=== PATIENT | female | born 1945 | race African-American/Black ===

== ENCOUNTER 2023-11-04 00:52 | Inpatient (IN) | payer OTHER ==
[2023-11-04] MEDS ORDERED: SODIUM CHLORIDE 0.9% 500 ML INFUS.BAG IV ONE (01:45)
[2023-11-04] MEDS ORDERED: ACETAMINOPHEN 1000 MG/100 ML BAG IVPB ONE (01:45)
[2023-11-04] MEDS ORDERED: DIPHTH,PERTUSS(ACELL),TET 0.5 ML DISP.SYRIN IM ONE ×2 (02:17→04:10)
[2023-11-04 02:19] LABS: HEMATOCRIT 43.1 % (32.4-45.2); HEMOGLOBIN 14.2 GM/dL (10.7-15.3); MCH 28.9 pg (25.7-33.7); MEAN CELL VOLUME 87.4 fl (80-96); MEAN PLT VOLUME 8.9 fl (7.5-11.1); PLATELET COUNT 421 10^3/uL (134-434); RBC 4.94 M/mm3 (3.60-5.2); RDW 15.1 % (11.6-15.6); WHITE BLOOD COUNT 9.4 K/mm3 (4.0-10.0)
[2023-11-04 02:27] LABS: INR 1.06 (0.83-1.09); PROTHROMBIN TIME (PATIENT) 12.3 SEC (9.7-13.0)
[2023-11-04 02:29] LABS: ACTIVATED PTT 23.2 SECONDS (25.2-36.5)
[2023-11-04 02:38] LABS: POTASSIUM 4.9 mmol/L (3.5-5.1)
[2023-11-04 02:40] LABS: CALCIUM 9.2 mg/dL (8.5-10.1)
[2023-11-04 02:41] LABS: ALBUMIN 3.4 g/dl (3.4-5.0); BLOOD UREA NITROGEN 10.1 mg/dL (7-18)
[2023-11-04 02:44] LABS: CREATININE 0.6 mg/dL (0.55-1.3); PHOSPHOROUS 2.6 mg/dL (2.5-4.9)
[2023-11-04 02:45] LABS: BILIRUBIN,TOTAL 0.7 mg/dL (0.2-1); TOT PROT 6.9 g/dl (6.4-8.2)
[2023-11-04 03:29] LABS: MAGNESIUM 1.6 mg/dL (1.8-2.4)
[2023-11-04] MEDS ORDERED: MAGNESIUM SULFATE IN WATER 2 GM/50 ML IVPB IVPB ONE ×2 (03:34→03:55)
[2023-11-04] MEDS ORDERED: ACETAMINOPHEN INJECTION 100 ML IVPB ONE (03:55)
[2023-11-04] MEDS ORDERED: FOLIC ACID INJECTION - 1 MG, THIAMINE HCL 100 MG, MULTIVIT INJECTION ADULT 10 ML in SOD... IVPB ONE ×2 (05:33→07:30)
[2023-11-04] MEDS ORDERED: BENZOCAINE/MENTHOL 1 EACH LOZENGE MM PRN (07:26)
[2023-11-04 08:17] LABS: BASO % 0.5 % (0-2.0); EOS % 0.8 % (0-4.5); HEMATOCRIT 40.1 % (32.4-45.2); HEMOGLOBIN 13.1 GM/dL (10.7-15.3); LYMPH % 13.7 % (8-40); MCH 28.7 pg (25.7-33.7); MCHC 32.6 g/dl (32.0-36.0); MEAN CELL VOLUME 88.2 fl (80-96); MEAN PLT VOLUME 9.2 fl (7.5-11.1); MONO % 15.4 % (3.8-10.2); NEUT % 69.6 % (42.8-82.8); PLATELET COUNT 367 10^3/uL (134-434); RBC 4.55 M/mm3 (3.60-5.2); RDW 14.8 % (11.6-15.6); WHITE BLOOD COUNT 7.7 K/mm3 (4.0-10.0)
[2023-11-04 08:32] LABS: POTASSIUM 3.3 mmol/L (3.5-5.1)
[2023-11-04 08:34] LABS: BLOOD UREA NITROGEN 10.9 mg/dL (7-18); CALCIUM 8.8 mg/dL (8.5-10.1)
[2023-11-04 08:37] LABS: BILIRUBIN,DIRECT 0.2 mg/dL (0.0-0.2); CREATININE 0.5 mg/dL (0.55-1.3)
[2023-11-04 08:39] LABS: TOT PROT 6.1 g/dl (6.4-8.2)
[2023-11-04 08:40] LABS: BILIRUBIN,TOTAL 0.4 mg/dL (0.2-1)
[2023-11-04] MEDS ORDERED: ENOXAPARIN NA (PORCINE) 40 MG/0.4 ML DISP.SYRIN SQ ONE (11:53)
[2023-11-04] MEDS: ENOXAPARIN NA (PORCINE) 40 MG/0.4 ML DISP.SYRIN SQ SCH (11:58)
[2023-11-04] MEDS ORDERED: POTASSIUM CHLORIDE ORAL LIQUID 20 MEQ/15 ML PO ONE (13:48)
[2023-11-04] MEDS ORDERED: POTASSIUM CHLORIDE ORAL LIQUID 20 MEQ/15 ML ONE (14:12)
[2023-11-04] MEDS ORDERED: ACETAMINOPHEN 325 MG TABLET (FP) ONE (20:36)
[2023-11-04] MEDS: ACETAMINOPHEN 500 MG TABLET (FP) PO PRN (20:43)
[2023-11-05 08:41] LABS: POTASSIUM 3.9 mmol/L (3.5-5.1)
[2023-11-05 08:46] LABS: CALCIUM 8.6 mg/dL (8.5-10.1)
[2023-11-05 08:47] LABS: BLOOD UREA NITROGEN 11.2 mg/dL (7-18)
[2023-11-05 08:49] LABS: CREATININE 0.4 mg/dL (0.55-1.3)
[2023-11-05] MEDS: ENOXAPARIN NA (PORCINE) 40 MG/0.4 ML DISP.SYRIN SQ SCH (09:24)
[2023-11-05] MEDS ORDERED: ACETAMINOPHEN 500 MG TABLET (FP) ONE (18:59)
[2023-11-05] MEDS: ACETAMINOPHEN 500 MG TABLET (FP) PO PRN (19:02)
[2023-11-05 23:25] LABS: EPI CELLS 1 /uL (0-25.1); HYALINE CASTS 0 /uL (0-3.1); URINE APPEARANCE CLEAR; URINE BACTERIA 214 /uL (0-1359); URINE BILIRUBIN NEGATIVE (NEGATIVE); URINE COLOR YELLOW; URINE GLUCOSE (UA) NEGATIVE (NEGATIVE); URINE KETONE NEGATIVE (NEGATIVE); URINE LEUK ESTERASE 2+ (NEGATIVE); URINE NITRITE NEGATIVE (NEGATIVE); URINE PROTEIN NEGATIVE (NEGATIVE); URINE RBC 24 /uL (0-23.9); URINE WBC 185 /uL (0-25.8)
[2023-11-06] MEDS ORDERED: ACETAMINOPHEN 500 MG TABLET (FP) ONE (00:53)
[2023-11-06] MEDS: ACETAMINOPHEN 500 MG TABLET (FP) PO PRN (00:58)
[2023-11-06 06:36] VITALS: RESP 18
[2023-11-06] MEDS: ENOXAPARIN NA (PORCINE) 40 MG/0.4 ML DISP.SYRIN SQ SCH (09:28)
[2023-11-06] MEDS ORDERED: amLODIPine BESYLATE 5 MG TABLET (FP) PO SCH (10:45)
[2023-11-06] MEDS ORDERED: SODIUM CHLORIDE 0.45% 1,000 ML IV SCH ×2 (11:15)
[2023-11-06 11:50] LABS: POTASSIUM 4.2 mmol/L (3.5-5.1)
[2023-11-06 11:52] LABS: ALBUMIN 2.8 g/dl (3.4-5.0); CALCIUM 9.6 mg/dL (8.5-10.1); MAGNESIUM 1.6 mg/dL (1.8-2.4)
[2023-11-06 11:53] LABS: BLOOD UREA NITROGEN 10.4 mg/dL (7-18)
[2023-11-06 11:55] LABS: BILIRUBIN,DIRECT 0.1 mg/dL (0.0-0.2)
[2023-11-06 11:56] LABS: CREATININE 0.5 mg/dL (0.55-1.3)
[2023-11-06 11:57] LABS: BILIRUBIN,TOTAL 0.2 mg/dL (0.2-1); TOT PROT 5.7 g/dl (6.4-8.2)
[2023-11-06] MEDS ORDERED: MAGNESIUM 2GM/50ML STERILE WATER IVPB IVPB ONE (12:00)
[2023-11-06 14:32] VITALS: BMI 18.0
[2023-11-07] MEDS ORDERED: BENZOCAINE/MENTHOL 1 EACH LOZENGE MM PRN (07:14)
[2023-11-07] MEDS: ASCORBIC ACID 250 MG TABLET (FP) PO SCH (09:33)
[2023-11-07] MEDS: MULTIVITAMINS (DAILY MVI) TABLET (FP) PO SCH (09:33)
[2023-11-07] MEDS: amLODIPine BESYLATE 5 MG TABLET (FP) PO SCH (09:33)
[2023-11-07] MEDS: ENOXAPARIN NA (PORCINE) 40 MG/0.4 ML DISP.SYRIN SQ SCH (09:33)
[2023-11-07 11:10] LABS: HEMATOCRIT 35.2 % (32.4-45.2); HEMOGLOBIN 11.6 GM/dL (10.7-15.3); MCH 28.8 pg (25.7-33.7); MEAN CELL VOLUME 87.3 fl (80-96); PLATELET COUNT 397 10^3/uL (134-434); RBC 4.03 M/mm3 (3.60-5.2); RDW 15.1 % (11.6-15.6); WHITE BLOOD COUNT 8.2 K/mm3 (4.0-10.0)
[2023-11-07 11:18] LABS: POTASSIUM 4.2 mmol/L (3.5-5.1)
[2023-11-07 11:22] LABS: CALCIUM 8.9 mg/dL (8.5-10.1)
[2023-11-07 11:23] LABS: ALBUMIN 2.6 g/dl (3.4-5.0); BLOOD UREA NITROGEN 8.2 mg/dL (7-18); MAGNESIUM 1.7 mg/dL (1.8-2.4)
[2023-11-07 11:26] LABS: CREATININE 0.6 mg/dL (0.55-1.3); PHOSPHOROUS 2.7 mg/dL (2.5-4.9)
[2023-11-07 11:27] LABS: BILIRUBIN,TOTAL 0.2 mg/dL (0.2-1); TOT PROT 5.5 g/dl (6.4-8.2)
[2023-11-07] MEDS: MAGNESIUM OXIDE 400 MG TABLET (FP) PO SCH ×2 (12:55→21:22)
[2023-11-07] MEDS: PARoxetine HCL 10 MG TABLET PO SCH (12:55)
[2023-11-07] MEDS ORDERED: CEFTRIAXONE 1 GM in DEXTROSE 5%-WATER - 50 ML IVPB ONE (15:03)
[2023-11-07] MEDS: ACETAMINOPHEN 325 MG TABLET (FP) PO PRN (21:26)
[2023-11-08] MEDS ORDERED: ACETAMINOPHEN 1000 MG/100 ML BAG IVPB ONE (03:13)
[2023-11-08] MEDS: MULTIVITAMINS (DAILY MVI) TABLET (FP) PO SCH (09:20)
[2023-11-08] MEDS: PARoxetine HCL 10 MG TABLET PO SCH (09:20)
[2023-11-08] MEDS: ENOXAPARIN NA (PORCINE) 40 MG/0.4 ML DISP.SYRIN SQ SCH (09:20)
[2023-11-08] MEDS: MAGNESIUM OXIDE 400 MG TABLET (FP) PO SCH (09:20)
[2023-11-08] MEDS: amLODIPine BESYLATE 5 MG TABLET (FP) PO SCH (09:20)
[2023-11-08] MEDS: ASCORBIC ACID 250 MG TABLET (FP) PO SCH (09:20)
[2023-11-08] MEDS: GABAPENTIN 100 MG CAPSULE PO SCH ×3 (09:55→22:41)
[2023-11-08] MEDS ORDERED: CEFTRIAXONE 1 GM in DEXTROSE 5%-WATER - 50 ML IVPB SCH (10:00)
[2023-11-08] MEDS ORDERED: COLLAGENASE CLOSTRIDIUM HIST. 30 GRAMS TUBE TP SCH ×2 (11:15)
[2023-11-08] MEDS ORDERED: MAGNESIUM OXIDE 400 MG TABLET (FP) PO SCH ×2 (11:15→22:00)
[2023-11-08] MEDS: ACETAMINOPHEN 325 MG TABLET (FP) PO PRN (12:42)
[2023-11-08 22:14] VITALS: BP 136/64; PULSE 84; TEMP 98.5
== END 2023-11-09 00:39 | DRG 690 ==
LOC: JER 00:52 → JERBED 01:46 → J4W 11-06 06:39 → J8W 11-06 19:59 → OBSVTOIN 11-07 11:49
PROVIDERS: ADMIT Internal Medicine; ATTEND Nurse Practitioner Acute Care
DX: N39.0 Urinary tract infection, site not specified (principal); R64 Cachexia; M62.82 Rhabdomyolysis; E44.0 Moderate protein-calorie malnutrition; Z68.1 Body mass index [BMI] 19.9 or less, adult; I10 Essential (primary) hypertension; L89.322 Pressure ulcer of left buttock, stage 2; B35.1 Tinea unguium; E87.6 Hypokalemia; R26.2 Difficulty in walking, not elsewhere classified; R79.89 Other specified abnormal findings of blood chemistry; M25.562 Pain in left knee; E83.42 Hypomagnesemia
CPT/HCPCS: 0241U-QW; 36415; 70450-TC; 71045-TC-FY; 72125-TC; 72170-TC-FY; 73562-TC-LT-FY; 73700-TC-RT; 80048; 80053; 80076; 81003; 82550; 82553; 83735; 84100; 84132; 84443; 84484; 85025; 85027; 85610; 85730; 87086; 87186; 87635; 90715; 93005; 93010; 97116-GP; 97162-GP; 99285-25; E0186; G0378